=== PATIENT | male | born 1955 | race Caucasian/White ===

== ENCOUNTER 2017-05-02 12:08 | Emergency (ER) | payer OTHER ==
--- NOTE | 2017-05-02 12:56 | RAD ---
Procedure: XR CHEST 1 VIEW Exam Date: 05/02/2017 12:23 PM SENIOR APPLICATION SECURITY CONSULTANT Ordering Provider: Stephanie Sandoval Clinical Indication: Hypoxia Comparison: None Findings: Bilateral perihilar interstitial septal prominence is noted and a background of faint groundglass opacification. No pleural effusion or pneumothorax is present. Heart size is upper limits of normal. Impression: Mild central vascular congestion/early pulmonary edema. Electronically signed by: Felisha Roldan MD 05/02/2017 12:55 PM SENIOR APPLICATION SECURITY CONSULTANT
--- NOTE | 2017-05-02 13:01 | ED.PDOC ---
History of Present Illness - General Chief Complaint: Neuro Symptoms/Deficits Stated Complaint: altered mental status Time Seen by Provider: 05/02/17 12:17 Source: patient, RN notes reviewed, Vital Signs reviewed, EMS Exam Limitations: no limitations - History of Present Illness Initial Comments: Patient presents to ER via EMS with c/o altered mental status. EMS report O2 saturation was 50% on room air. Patient reports he is feeling better since being placed on Oxygen via Non-rebreather mask. Patient reports he feels fine. He has had a productive cough for the past 2 weeks. Denies chest pain or SOB. Did have some fever and chills but has resolved. He has had 2 falls recently. Timing/Duration: unsure Severity: moderate Improving Factors: other - Oxygen Worsening Factors: nothing Associated Symptoms: cough, fever/chills Allergies/Adverse Reactions: Allergies NO KNOWN ALLERGY Allergy (Verified 05/02/17 12:46) Review of Systems - Review of Systems Constitutional: States: chills, fever. Denies: malaise EENTM: States: no symptoms reported Respiratory: States: see HPI, cough. Denies: short of breath, wheezing Cardiology: States: no symptoms reported. Denies: chest pain, palpitations Gastrointestinal/Abdominal: States: no symptoms reported Musculoskeletal: States: joint pain - knees Skin: States: no symptoms reported Neurological: States: no symptoms reported All other Systems: No Change from Baseline Past Medical History (General) - Patient Medical History Hx Hypertension: Yes Hx Diabetes: Yes Surgical History: no surgical history - Vaccination History Hx Influenza Vaccination: Yes Hx Pneumococcal Vaccination: Yes - Social History Hx Alcohol Use: No Hx Substance Use: No Hx Depression: No Family Medical History - Family History Mother Family History: Unknown Physical Exam - Physical Exam General Appearance: Alert, Comfortable, No apparent distress, Obese, Well Groomed, Well Hydrated, Well Nourished Ears, Nose, Throat: hearing grossly normal, normal ENT inspection Neck: supple, normal inspection Respiratory: chest non-tender, no respiratory distress, no accessory muscle use , decreased breath sounds - bilateral bases Cardiovascular/Chest: regular rate, rhythm, no gallop, no murmur Gastrointestinal/Abdominal: normal bowel sounds, non tender, soft Extremity: pedal edema - 3-4+ pitting Neurologic: alert, normal mood/affect, other - Oriented X2, slow to answer but answers everything except month appropriately. Family reports this is a change. Skin Exam: normal color, warm/dry Comments: Vital Signs 05/02/17 05/02/17 12:08 12:10 Pulse Rate [ 91 H pulse ox] Respiratory 20 20 Rate Blood Pressure 150/94 [left wrist] O2 Sat by Pulse 100 Oximetry Progress - Progress Progress: 05/02/17 14:35 Patient has an elevated D-Dimer with elevated BUN/Creatinine and is too large for our CT scanner and can't obtain a VQ scan. Discussed with Dr. Appiah @ [facility] who accepted patient in transfer. 05/02/17 14:36 Gave 1L NS bolus and Lasix 40mg IV - Results/Orders Results/Orders: Laboratory Tests 05/02/17 05/02/17 05/02/17 12:52 12:52 12:52 WBC 8.6 RBC 5.54 Hgb 15.2 Hct 47.9 MCV 86.5 MCH 27.5 MCHC 31.8 L RDW 17.7 H Plt Count 239 MPV 8.5 Absolute Neuts (auto) 6.40 Absolute Lymphs (auto) 1.50 Absolute Monos (auto) 0.70 Absolute Eos (auto) 0.00 Absolute Basos (auto) 0.00 Neutrophils % 74.4 Lymphocytes % 17.6 L Monocytes % 7.5 Eosinophils % 0.1 L Basophils % 0.4 D-Dimer, Quantitative 914 H* Sodium 136 Potassium 4.6 Chloride 93 L Carbon Dioxide 32 H Anion Gap 15.6 BUN 46 H Creatinine 2.52 H BUN/Creatinine Ratio 18.3 Random Glucose 114 H Serum Osmolality 284.7 Calcium 8.6 Total Bilirubin 3.3 H* AST 43 H ALT 41 Alkaline Phosphatase 74 Creatine Kinase 56 CK-MB (CK-2) 2.4 CK-MB (CK-2) % Not Reportable Troponin I 0.03 B-Natriuretic Peptide 558.0 H* Serum Total Protein 7.6 Albumin 3.7 Globulin 3.9 H Albumin/Globulin Ratio 0.9 L - EKG/XRAY/CT XRAY: chest - Mild pulmonary edema Departure - Departure Clinical Impression: Hypoxia, Elevated d-dimer Altered mental status, unspecified Qualifiers: Altered mental status type: somnolence Qualified Code(s): R40.0 - Somnolence Congestive heart failure (CHF) Qualifiers: Congestive heart failure type: unspecified congestive heart failure type Congestive heart failure chronicity: acute on chronic Qualified Code(s): I50.9 - Heart failure, unspecified Time of Disposition: 14:38 Disposition: Transfer to Hospital Condition: Poor Departure Forms: ED Discharge - Pt. Copy, Patient Portal Self Enrollment Referrals: Jan Norton MD [Primary Care Provider] - 1-2 Weeks Transfer to Outside Facility - Transfer Information Accepting Provider:: Dr. Appiah Accepting Facility: [facility] Reason for Transfer: Needs CT scan to r/o PE, too large for our scanner
[2017-05-02] MEDS ORDERED: SODIUM CHLORIDE 0.9% 1000ML 1,000 ML IVS ONE (13:15)
[2017-05-02] MEDS ORDERED: FUROSEMIDE INJ 40 MG/4 ML VIAL IV ONE (13:38)
[2017-05-02 14:08] VITALS: O2SAT 100
[2017-05-02] MEDS ORDERED: FUROSEMIDE INJ 40 MG/4 ML VIAL ONE (14:50)
[2017-05-02 17:59] VITALS: BP 136/78; TEMP 96.8
== END 2017-05-02 16:40 | disposition short-term general hospital (02) ==
LOC: ER 12:08
DX: R40.0 Somnolence (principal); R09.02 Hypoxemia; R79.89 Other specified abnormal findings of blood chemistry; I11.0 Hypertensive heart disease with heart failure; I50.9 Heart failure, unspecified; E11.9 Type 2 diabetes mellitus without complications
CPT/HCPCS: 36415; 36416; 71010; 80053; 80307; 80329; 81001; 82550; 82553; 82948; 83880; 84484; 85025; 85379; 87086; J1940; J7030